=== PATIENT | male | born 1950 | race Caucasian/White ===

== ENCOUNTER 2022-11-18 12:50 | Outpatient (CLI) | payer MEDICARE, MEDICAID | END 2022-11-18 23:59 | disposition home or self-care (01) | LOC: RAD 12:50 | PROVIDERS: ATTEND Student in an Organized Health Care Education/Training Program | DX: R13.12 Dysphagia, oropharyngeal phase (principal); R47.1 Dysarthria and anarthria; R49.0 Dysphonia; C85.89 Other specified types of non-Hodgkin lymphoma, extranodal and solid organ sites | CPT/HCPCS: 74230 ==